=== PATIENT | female | born 1970 | race Caucasian/White ===

== ENCOUNTER 2016-10-14 09:54 | Emergency (ER) | payer BC, OTHER ==
[~2016-10-14] VITALS: Ht 170.2 cm; Wt 93.4 kg
[2016-10-14 10:20] VITALS: BP 102/55
[2016-10-14 10:53] LABS: Basophils # (auto) 0 uL; Eosinophils # (auto) 0.1 uL; Eosinophils % (auto) 1.6 % (0.0-7.0); Hematocrit 38.1 % (36.0-46.0); Hemoglobin 12.9 g/dL (12.2-16.2); Lymphocytes # (auto) 0.7 uL; Lymphocytes % (auto) 13.1 % (10.0-50.0); Mean Corpuscular Hemoglobin 32.7 pg (28.0-32.0); Mean Corpuscular Volume 96.3 fL (80.0-100.0); Mean Platelet Volume 8.3 fL (7.4-10.4); Monocytes # (auto) 0 uL; Monocytes % (auto) 0.3 % (0.0-12.0); Neutrophils # (auto) 4.5 uL; Platelet Count (auto) 256 10^3/uL (140-450); Red Cell Distribution Width 13.3 % (11.6-16.0); SUSPECT VIEW TRANSMISSION; White Blood Cell 5.4 10^3/uL (4.4-10.8)
[2016-10-14 11:08] LABS: INR 0.94 (0.9-1.15); Partial Thromboplastin Time 27.5 sec (22.64-33.71); Prothrombin Time 10.2 sec (9.37-12.3)
[2016-10-14 11:23] LABS: Albumin 3.4 g/dL (3.4-5.0); Bilirubin, Total 0.9 mg/dL (0.2-1.0); Calcium 8.7 mg/dL (8.5-10.1); Potassium 4.3 mmol/L (3.5-5.1); Total Protein 7.1 g/dL (6.4-8.2)
[2016-10-14 12:05] LABS: Urine Bilirubin Negative (Negative); Urine Color Yellow (Yellow); Urine Granular Cast FEW /lpf (0); Urine Ketone Negative (Negative); Urine Mucus FEW (None Seen); Urine Nitrite Negative (Negative); Urine RBC 2 /hpf (0 - 4); Urine Squamous Epithelial Cell MOD /hpf (<5); Urine Urobilinogen Normal (Negative); Urine pH 5.5 (5.0-8.0)
[2016-10-14 12:06] LABS: Urine Blood 1+ /uL (Negative); Urine Glucose 1+ mg/dL (Normal)
== END 2016-10-14 12:59 | disposition home or self-care (01) ==
LOC: ER 09:54
DX: N39.0 Urinary tract infection, site not specified (principal); Z85.3 Personal history of malignant neoplasm of breast
CPT/HCPCS: 36415; 80053; 81001; 85025; 85610; 85730